=== PATIENT | female | born 1995 | race Caucasian/White ===

== ENCOUNTER 2017-06-11 20:32 | Emergency (ER) | payer OTHER ==
[~2017-06-11] VITALS: Ht 157.5 cm; Wt 57.1 kg
--- NOTE | ~2017-06-11 | EKG ---
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
[2017-06-11] MEDS ORDERED: OMEPRAZOLE40 MG PO (20:45)
[2017-06-11] MEDS ORDERED: MELATONIN5 M1 PO (20:46)
[2017-06-11] MEDS ORDERED: OSELB75 PO (21:10)
[2017-06-11 21:11] LABS: URINE BLOOD 3+ (Negative); URINE CLARITY CLEAR; URINE COLOR YELLOW; URINE GLUCOSE-RANDOM* NEGATIVE (Negative); URINE KETONES NEGATIVE (Negative); URINE LEUKOCYTES-REFLEX NEGATIVE (Negative); URINE NITRITE-REFLEX NEGATIVE (Negative); URINE PROTEIN (DIPSTICK) NEGATIVE (Negative); URINE UROBILINOGEN 0.2 E.U./dl (0.2-1.0)
[2017-06-11 21:14] LABS: ICTOTEST (BILI CONFIRMATORY) Negative (Negative); URINE BILIRUBIN NEGATIVE (Negative)
[2017-06-11 21:20] LABS: CASTS None Seen /LPF (None Seen); SQUAMOUS >10 Many /LPF (0-3); URINE RBC 3-10 Few /HPF (0-2); URINE WBC-REFLEX 0-5 Rare /HPF (0-5)
[2017-06-11 21:21] LABS: BACTERIA-REFLEX 1-9 Few /HPF (None Seen); CRYSTALS None Seen /LPF (None Seen)
[2018-01-30] MEDS ORDERED: COMPAZINE10 M2 PO (10:40)
== END 2017-06-11 22:57 | disposition home or self-care (01) ==
LOC: ER 20:32
PROVIDERS: Emergency Medicine
DX: J11.1 Influenza due to unidentified influenza virus with other respiratory manifestations (principal)

== ENCOUNTER 2017-07-31 15:45 | Emergency (ER) | payer OTHER ==
[~2017-07-31] VITALS: Ht 157.5 cm; Wt 54.4 kg
[~2017-07-31 15:45] MED LIST: MELATONIN5 M1 PO; OMEPRAZOLE40 MG PO; OSELB75 PO
[2017-07-31] MEDS ORDERED: ERYTHROCIN STE250 MG PO (16:02)
[2017-07-31] MEDS ORDERED: PROBIOTIC1 EAC1 PO (16:03)
[2017-07-31 16:26] LABS: URINE BILIRUBIN NEGATIVE (Negative); URINE BLOOD NEGATIVE (Negative); URINE CLARITY CLEAR; URINE COLOR YELLOW; URINE GLUCOSE-RANDOM* NEGATIVE (Negative); URINE KETONES TRACE (Negative); URINE LEUKOCYTES-REFLEX 1+ (Negative); URINE NITRITE-REFLEX NEGATIVE (Negative); URINE PROTEIN (DIPSTICK) NEGATIVE (Negative)
[2017-07-31 16:33] LABS: CALCIUM 9.3 mg/dL (8.5-10.1); CREATININE 0.9 mg/dL (0.6-1.0); POTASSIUM 3.6 mmol/L (3.5-5.1)
[2017-07-31 16:33] LABS: CASTS None Seen /LPF (None Seen); CRYSTALS None Seen /LPF (None Seen); SQUAMOUS 4-10 Moderate /LPF (0-3); URINE RBC 0-2 Rare /HPF (0-2); URINE WBC-REFLEX 6-15 Few /HPF (0-5)
[2017-07-31 16:39] LABS: TOTAL BILIRUBIN 0.3 mg/dL (<0.1-1.0); TOTAL PROTEIN 7.5 g/dL (6.4-8.2)
[2017-07-31 17:10] LABS: HEMATOCRIT 37.9 % (37.0-47.0); MCH 30.7 pg (26.0-34.0); MCHC 34.3 g/dL (28.0-37.0); MCV 89.5 fL (80.0-100.0); PLATELET COUNT 239 thou/uL (150-400); RBC 4.23 mil/uL (4.20-5.00); RDW 13.4 % (10.5-14.5); WBC 4.1 thou/uL (4.0-11.0)
[2017-07-31] MEDS ORDERED: TESSALON PERLE100 MG PO (17:37)
[2017-07-31] MEDS ORDERED: MACROBID 100 M100 M1 PO (17:37)
[2017-07-31 17:40] LABS: ANISOCYTOSIS 1+
[2017-07-31 18:25] VITALS: BP 118/66
== END 2017-07-31 18:27 | disposition home or self-care (01) ==
LOC: ER 15:45
PROVIDERS: Physician Assistant
DX: K31.84 Gastroparesis (principal); N39.0 Urinary tract infection, site not specified; R05 Cough; Z90.49 Acquired absence of other specified parts of digestive tract; Z88.6 Allergy status to analgesic agent

== ENCOUNTER 2017-08-06 17:10 | Emergency (ER) | payer OTHER ==
[~2017-08-06] VITALS: Ht 154.9 cm; Wt 53.1 kg
--- NOTE | ~2017-08-06 | EKG ---
[address] [place] [address] ELECTROCARDIOGRAM REPORT Name: DIXON MOLINA [id number] Admission: 08/06/17 Attend Phys: Discharge: 08/06/17 Date of : [birth year] Report #: [id number] THIS REPORT FOR: //name// [facility] ED Test Date: 2017-08-06 Test Time: 17:20:53 Pat Name: DIXON MOLINA Department: Room: Gender: F Plan Consultant: CARLEE : 1995 Requested By: Lb Lawler Order Number: [id number] MD: Milton Agosot Measurements Intervals [place] Rate: 52 P: 45 IN: 112 QRS: 41 QRSD: 93 T: 49 QT: 481 QTc: 448 Interpretive Statements Sinus rhythm Right ventricular conduction delay Compared to ECG 06/11/2017 20:48:30 No significant change was found Electronically Signed On 08-07-2017 7:47:28 CDT by Milton Agosto [email or web address] <ELECTRONICALLY SIGNED> By: Milton Agosto MD, [facility] 08/07/17 0747 1720 1720 Milton Agosto MD, FACC /EPI
[~2017-08-06 17:10] MED LIST changes: +ERYTHROCIN STE250 MG PO; +MACROBID 100 M100 M1 PO; +PROBIOTIC1 EAC1 PO; +TESSALON PERLE100 MG PO
[2017-08-06 17:48] LABS: BASOPHILS 0.4 % (0.0-2.0); EOSINOPHILS 3.2 % (0.0-3.0); HEMATOCRIT 40.2 % (37.0-47.0); HEMOGLOBIN 13.8 gm/dL (12.0-15.0); LYMPHOCYTES 44.4 % (24.0-44.0); MCH 30.2 pg (26.0-34.0); MCHC 34.3 g/dL (28.0-37.0); MCV 88.1 fL (80.0-100.0); MONOCYTES 8.1 % (1.0-8.0); PLATELET COUNT 205 thou/uL (150-400); POLYS 43.9 % (36.0-66.0); RBC 4.56 mil/uL (4.20-5.00); RDW 13.1 % (10.5-14.5); WBC 4.4 thou/uL (4.0-11.0)
[2017-08-06 17:56] LABS: CALCIUM 9.2 mg/dL (8.5-10.1); CREATININE 0.7 mg/dL (0.6-1.0); POTASSIUM 3.9 mmol/L (3.5-5.1)
[2017-08-06 18:02] LABS: TOTAL BILIRUBIN 0.3 mg/dL (<0.1-1.0); TOTAL PROTEIN 7.4 g/dL (6.4-8.2)
[2017-08-06] MEDS ORDERED: SCOPOLAMINE1 EACH TRANSDERM (18:28)
[2017-08-06 19:37] VITALS: BP 110/67
== END 2017-08-06 19:25 | disposition home or self-care (01) ==
LOC: ER 17:10
PROVIDERS: Emergency Medicine
DX: K31.84 Gastroparesis (principal); R11.2 Nausea with vomiting, unspecified; R00.2 Palpitations; Z90.49 Acquired absence of other specified parts of digestive tract; Z88.5 Allergy status to narcotic agent

== ENCOUNTER 2020-03-12 16:26 | Emergency (ER) | payer OTHER ==
[~2020-03-12] VITALS: Ht 154.9 cm; Wt 55.8 kg
[~2020-03-12 16:26] MED LIST changes: +COMPAZINE10 M2 PO; +SCOPOLAMINE1 EACH TRANSDERM
[2020-03-12] MEDS ORDERED: ABILIFY 5 MG TAB5 MG PO (16:39)
[2020-03-12] MEDS ORDERED: XANAX1 MG PO (16:40)
[2020-03-12] MEDS ORDERED: XANAX 0.25 MG0.25 MG PO (16:40)
[2020-03-12 17:01] LABS: URINE BILIRUBIN NEGATIVE (Negative); URINE BLOOD NEGATIVE (Negative); URINE CLARITY CLEAR; URINE COLOR YELLOW; URINE GLUCOSE-RANDOM* NEGATIVE (Negative); URINE KETONES NEGATIVE (Negative); URINE LEUKOCYTES-REFLEX NEGATIVE (Negative); URINE NITRITE-REFLEX NEGATIVE (Negative); URINE PROTEIN (DIPSTICK) NEGATIVE (Negative); URINE UROBILINOGEN 0.2 E.U./dl (0.2-1.0)
[2020-03-12 17:02] LABS: HEMATOCRIT 38.7 % (37.0-47.0); HEMOGLOBIN 13.3 gm/dL (12.0-15.0); MCH 31.6 pg (26.0-34.0); MCHC 34.3 g/dL (28.0-37.0); MCV 92.2 fL (80.0-100.0); RBC 4.2 mil/uL (4.20-5.00); RDW 12.8 % (10.5-14.5); WBC 8.3 thou/uL (4.0-11.0)
[2020-03-12 17:07] LABS: ANION GAP 13 mmol/L (7-16); BUN 14 mg/dL (7-18); CALCIUM 9.4 mg/dL (8.5-10.1); CHLORIDE 103 mmol/L (98-107); CO2 23 mmol/L (21-32); CREATININE 0.8 mg/dL (0.6-1.0); GLUCOSE 102 mg/dL (74-106); POTASSIUM 3.8 mmol/L (3.5-5.1); SODIUM 139 mmol/L (136-145)
[2020-03-12 17:15] LABS: TROPONIN-I <0.06 ng/mL (<0.06)
[2020-03-12 18:57] VITALS: BP 115/77
--- NOTE | 2020-03-13 07:40 | EKG ---
[facility] [place] [address] ELECTROCARDIOGRAM REPORT Name: DIXON MCFADDEN Room #: DEP [facility].#: [id number] Admission: 03/12/20 Attend Phys: Discharge: 03/12/20 Date of : [birth year] Report #: [id number] THIS REPORT FOR: cc: PEMA REICH MD Physician not on staff Radu Freitas MD [facility] ~ THIS REPORT FOR: //name// [facility] ED Test Date: 2020-03-12 Test Time: 17:02:48 Pat Name: DIXON PIMENTEL Department: Room: Gender: F Manager Traffic: DEVONTE : 1995 Requested By: Mike Alcantar Order Number: [id number] MD: Radu Freitas Measurements Intervals [place] Rate: 104 P: 70 MI: 137 QRS: 37 QRSD: 82 T: 38 QT: 337 QTc: 444 Interpretive Statements Sinus tachycardia Compared to ECG 08/06/2017 17:20:53 Sinus rhythm no longer present Electronically Signed On 03-13-2020 7:39:52 CDT by Radu Freitas [email or web address] <ELECTRONICALLY SIGNED> By: Radu Freitas MD, FACC 03/13/20 0739 01 01 Radu Freitas MD, FAC /EPI
== END 2020-03-12 18:57 | disposition home or self-care (01) ==
LOC: ER 16:26
PROVIDERS: Emergency Medicine
DX: R00.2 Palpitations (principal); Z79.899 Other long term (current) drug therapy; Z79.2 Long term (current) use of antibiotics; Z88.5 Allergy status to narcotic agent; Z20.828 Contact with and (suspected) exposure to other viral communicable diseases

== ENCOUNTER 2020-06-08 06:27 | Emergency (ER) | payer OTHER ==
[~2020-06-08] VITALS: Ht 154.9 cm; Wt 59.0 kg
[~2020-06-08 06:27] MED LIST changes: +ABILIFY 5 MG TAB5 MG PO; +XANAX 0.25 MG0.25 MG PO; +XANAX1 MG PO
[2020-06-08 07:22] LABS: URINE BILIRUBIN NEGATIVE (Negative); URINE BLOOD NEGATIVE (Negative); URINE CLARITY CLEAR; URINE COLOR YELLOW; URINE GLUCOSE-RANDOM* NEGATIVE (Negative); URINE KETONES NEGATIVE (Negative); URINE LEUKOCYTES-REFLEX NEGATIVE (Negative); URINE NITRITE-REFLEX NEGATIVE (Negative); URINE PROTEIN (DIPSTICK) NEGATIVE (Negative); URINE SPECIFIC GRAVITY 1.025 (1.005-1.035); URINE UROBILINOGEN 0.2 E.U./dl (0.2-1.0)
[2020-06-08 07:56] LABS: ABSOLUTE NEUTROPHILS 3.8 thou/uL (1.4-8.2); BASOPHILS 0.7 % (0.0-2.0); EOSINOPHILS 2.4 % (0.0-3.0); HEMATOCRIT 39.9 % (37.0-47.0); HEMOGLOBIN 13.5 gm/dL (12.0-15.0); LYMPHOCYTES 20.9 % (24.0-44.0); MCH 31.2 pg (26.0-34.0); MCHC 33.8 g/dL (28.0-37.0); MCV 92.2 fL (80.0-100.0); MONOCYTES 7.2 % (1.0-8.0); PLATELET COUNT 279 thou/uL (150-400); POLYS 68.8 % (36.0-66.0); RBC 4.32 mil/uL (4.20-5.00); RDW 12.7 % (10.5-14.5); WBC 5.5 thou/uL (4.0-11.0)
[2020-06-08] MEDS ORDERED: ABILIFY 2 MG2 M1 PO (07:57)
[2020-06-08] MEDS ORDERED: ZOFRAN ODT4 MG PO (07:57)
[2020-06-08] MEDS ORDERED: WELLBUTRIN SR150 MG PO (07:58)
[2020-06-08 08:01] LABS: ANION GAP 9 mmol/L (7-16); BUN 9 mg/dL (7-18); CALCIUM 9.1 mg/dL (8.5-10.1); CHLORIDE 104 mmol/L (98-107); CO2 24 mmol/L (21-32); CREATININE 0.7 mg/dL (0.6-1.0); GLUCOSE 94 mg/dL (74-106); SODIUM 137 mmol/L (136-145)
[2020-06-08 08:03] LABS: POTASSIUM 4.4 mmol/L (3.5-5.1)
[2020-06-08 08:06] LABS: ALBUMIN 4.1 g/dL (3.4-5.0); DIRECT BILIRUBIN < 0.1 mg/dL (<0.1-0.2); LIPASE 93 U/L (73-393); SGOT 17 U/L (15-37); SGPT 15 U/L (14-59); TOTAL BILIRUBIN 0.5 mg/dL (0.2-1.0); TOTAL PROTEIN 7.3 g/dL (6.4-8.2)
[2020-06-08] MEDS ORDERED: DICYCLOMINE HCL20 MG PO (11:44)
[2020-06-08 12:12] VITALS: BP 108/53
== END 2020-06-08 12:09 | disposition home or self-care (01) ==
LOC: ER 06:27
PROVIDERS: Emergency Medicine
DX: R10.11 Right upper quadrant pain (principal); Z88.6 Allergy status to analgesic agent; Z79.899 Other long term (current) drug therapy; Z90.49 Acquired absence of other specified parts of digestive tract

== ENCOUNTER 2020-07-08 05:59 | Emergency (ER) | payer OTHER ==
[~2020-07-08] VITALS: Ht 154.9 cm; Wt 57.1 kg
[~2020-07-08 05:59] MED LIST changes: +ABILIFY 2 MG2 M1 PO; +DICYCLOMINE HCL20 MG PO; +WELLBUTRIN SR150 MG PO; +ZOFRAN ODT4 MG PO
[2020-07-08 06:35] LABS: ABSOLUTE NEUTROPHILS 2.8 thou/uL (1.4-8.2); BASOPHILS 0.7 % (0.0-2.0); EOSINOPHILS 1.5 % (0.0-3.0); HEMATOCRIT 42.1 % (37.0-47.0); HEMOGLOBIN 14.1 gm/dL (12.0-15.0); LYMPHOCYTES 25.6 % (24.0-44.0); MCHC 33.5 g/dL (28.0-37.0); MCV 92.3 fL (80.0-100.0); MONOCYTES 8.1 % (1.0-8.0); PLATELET COUNT 290 thou/uL (150-400); POLYS 64.1 % (36.0-66.0); RBC 4.56 mil/uL (4.20-5.00); RDW 12.4 % (10.5-14.5); WBC 4.3 thou/uL (4.0-11.0)
[2020-07-08 06:42] LABS: CALCIUM 8.9 mg/dL (8.5-10.1); CREATININE 0.8 mg/dL (0.6-1.0); POTASSIUM 4.4 mmol/L (3.5-5.1)
[2020-07-08 06:48] LABS: ALBUMIN 4.1 g/dL (3.4-5.0); DIRECT BILIRUBIN 0.1 mg/dL (<0.1-0.2); TOTAL BILIRUBIN 0.6 mg/dL (0.2-1.0); TOTAL PROTEIN 7.4 g/dL (6.4-8.2)
--- NOTE | 2020-07-08 07:32 | EKG ---
[address] [address] [address] [place] [address] ELECTROCARDIOGRAM REPORT Name: DIXON MCFADDEN [facility]: [facility] [id number] Admission: 07/08/20 Attend Phys: Discharge: Date of : [birth year] Report #: [id number] [facility] ED Test Date: 2020-07-08 Test Time: 07:20:02 Pat Name: DIXON PIMENTEL Department: Room: Gender: F Analytics Manager: lu : 1995 Requested By: Doni Rosa Order Number: [id number] MD: Milton Agosto Measurements Intervals [place] Rate: 100 P: 47 ND: 132 QRS: 37 QRSD: 84 T: 37 QT: 329 QTc: 425 Interpretive Statements Sinus tachycardia Otherwise no significant abnormality Compared to ECG 03/12/2020 17:02:48 No significant changes Electronically Signed On 07-08-2020 7:31:50 MANAGER EXCHANGE by Milton Agosto [email or web address] <ELECTRONICALLY SIGNED> By: Milton Agosto MD, [facility] 07/08/2031 9 9 Milton Agosto MD, FAC /EPI
[2020-07-08 08:44] LABS: URINE BILIRUBIN NEGATIVE (Negative); URINE BLOOD 1+ (Negative); URINE CLARITY CLEAR; URINE COLOR YELLOW; URINE GLUCOSE-RANDOM* NEGATIVE (Negative); URINE KETONES NEGATIVE (Negative); URINE LEUKOCYTES-REFLEX NEGATIVE (Negative); URINE NITRITE-REFLEX NEGATIVE (Negative); URINE PROTEIN (DIPSTICK) NEGATIVE (Negative); URINE SPECIFIC GRAVITY <= 1.005 (1.005-1.035); URINE UROBILINOGEN 0.2 E.U./dl (0.2-1.0)
[2020-07-08 09:00] LABS: BACTERIA-REFLEX 1-9 Few /HPF (None Seen); CASTS None Seen /LPF (None Seen); CRYSTALS None Seen /LPF (None Seen); SQUAMOUS 0-3 Few /LPF (0-3); URINE WBC-REFLEX 0-5 Rare /HPF (0-5)
[2020-07-08 09:01] LABS: URINE RBC 0-2 Rare /HPF (0-2)
[2020-07-08] MEDS ORDERED: KEFLEX500 M1 PO (09:09)
[2020-07-08] MEDS ORDERED: VALIUM5 MG PO (09:09)
[2020-07-08] MEDS ORDERED: ZOFRAN ODT4 MG PO (09:09)
[2020-07-08 10:01] VITALS: BP 110/69
--- NOTE | 2020-07-08 16:22 | EKG ---
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 : 1995 Requested By: Doni Rosa Order Number: [id number] MD: Radu Freitas Measurements Intervals [place] Rate: 76 P: 40 [place]: 182 QRS: 1 QRSD: 97 T: 42 QT: 405 QTc: 456 Interpretive Statements Sinus rhythm Low voltage, precordial leads RSR' in V1 or V2, right VCD or RVH Compared to ECG 03/12/2020 17:02:48 Low QRS voltage now present Right ventricular hypertrophy now present RSR' in V1 or V2 now present Sinus tachycardia no longer present Electronically Signed On 07-08-2020 16:22:42 CLERK SUPERVISOR by Radu Freitas [email or web address] <ELECTRONICALLY SIGNED> By: Radu Freitas MD, FAC 07/08/20 1622 0710 0710 Radu Freitas MD, [facility] /EPI
== END 2020-07-08 10:01 | disposition home or self-care (01) ==
LOC: ER 05:59
PROVIDERS: Emergency Medicine
DX: K83.09 Other cholangitis (principal); R82.71 Bacteriuria; Z79.899 Other long term (current) drug therapy; Z88.8 Allergy status to other drugs, medicaments and biological substances

== ENCOUNTER 2020-10-14 05:20 | Emergency (ER) | payer OTHER ==
[~2020-10-14] VITALS: Ht 154.9 cm; Wt 63.0 kg
[~2020-10-14 05:20] MED LIST changes: +KEFLEX500 M1 PO; +VALIUM5 MG PO
[2020-10-14 08:23] LABS: BASOPHILS 0.4 % (0.0-2.0); EOSINOPHILS 0.3 % (0.0-3.0); HEMATOCRIT 38.1 % (37.0-47.0); HEMOGLOBIN 12.2 gm/dL (12.0-15.0); LYMPHOCYTES 13.5 % (24.0-44.0); MCV 96.6 fL (80.0-100.0); MONOCYTES 8.7 % (1.0-8.0); PLATELET COUNT 232 thou/uL (150-400); POLYS 77.1 % (36.0-66.0); RBC 3.94 mil/uL (4.20-5.00); RDW 13.1 % (10.5-14.5); WBC 7.7 thou/uL (4.0-11.0)
[2020-10-14 08:38] LABS: URINE BILIRUBIN NEGATIVE (Negative); URINE BLOOD NEGATIVE (Negative); URINE CLARITY CLEAR; URINE COLOR YELLOW; URINE GLUCOSE-RANDOM* NEGATIVE (Negative); URINE KETONES TRACE (Negative); URINE LEUKOCYTES-REFLEX NEGATIVE (Negative); URINE NITRITE-REFLEX NEGATIVE (Negative); URINE PROTEIN (DIPSTICK) NEGATIVE (Negative); URINE UROBILINOGEN 0.2 E.U./dl (0.2-1.0)
[2020-10-14 08:53] LABS: CALCIUM 8.2 mg/dL (8.5-10.1); CREATININE 0.7 mg/dL (0.6-1.0); POTASSIUM 4.3 mmol/L (3.5-5.1)
[2020-10-14 08:59] LABS: ALBUMIN 3.4 g/dL (3.4-5.0); TOTAL BILIRUBIN 0.4 mg/dL (0.2-1.0); TOTAL PROTEIN 6.4 g/dL (6.4-8.2)
[2020-10-14 09:24] VITALS: BP 90/49
--- NOTE | 2020-10-14 10:30 | EKG ---
[address] [address] [facility] [place] [address] ELECTROCARDIOGRAM REPORT Name: DIXON MCFADDEN [facility] [id number] Admission: 10/14/20 Attend Phys: Discharge: 10/14/20 Date of : [birth year] Report #: [id number] [facility] ED Test Date: 2020-10-14 Test Time: 09:06:07 Pat Name: DIXON PIMENTEL Department: Room: Gender: F Licensed Investment Sales Assistant: alyssa : 1995 Requested By: Philippe Cortez Order Number: [id number] MD: Radu Freitas Measurements Intervals [place] Rate: 73 P: 60 SD: 139 QRS: 50 QRSD: 82 T: 52 QT: 388 QTc: 428 Interpretive Statements Sinus arrhythmia Baseline wander in lead(s) V1 Compared to ECG 07/08/2020 07:20:02 Sinus tachycardia no longer present Electronically Signed On 10-14-2020 10:30:20 CDT by Radu Freitas [email or web address] <ELECTRONICALLY SIGNED> By: Radu Freitas MD, [facility] 10/14/20 1030 0906 5 Radu Freitas MD, FACC /EPI
== END 2020-10-14 09:24 | disposition still patient (30) ==
LOC: ER 05:20
PROVIDERS: Emergency Medicine
DX: R10.13 Epigastric pain (principal); R10.12 Left upper quadrant pain; Z90.49 Acquired absence of other specified parts of digestive tract; Z88.5 Allergy status to narcotic agent